=== PATIENT | female | born 1955 | race Caucasian/White ===

== ENCOUNTER 2021-11-25 07:24 | Outpatient (RCR) | payer OTHER, SELFPAY ==
[2021-11-25 07:37] VITALS: BP 150/70; PULSE 70; RESP 16; TEMP 35.8; O2SAT 96
[2021-11-25] MEDS: ACETAMINOPHEN 325 MG TABLET 650 MG PO (07:39)
[2021-11-25] MEDS: diphenhydrAMINE HCl CAP 25 MG CAPSULE PO (07:40)
[2021-11-25] MEDS: FAMOTIDINE 20 MG TABLET PO (07:40)
[2021-11-25 08:59] VITALS: BP 123/42; PULSE 72; O2SAT 98
== END 2021-11-25 17:00 ==
LOC: AMCINF 07:24
PROVIDERS: PCP Nurse Practitioner Family; Visit Provider Internal Medicine Hematology & Oncology
DX: U07.1 COVID-19 (principal); I10 Essential (primary) hypertension; I25.10 Atherosclerotic heart disease of native coronary artery without angina pectoris; J44.9 Chronic obstructive pulmonary disease, unspecified; E11.9 Type 2 diabetes mellitus without complications
CPT/HCPCS: A9270; M0247; Q0247

== ENCOUNTER 2022-02-25 12:54 | Outpatient (CLI) | payer OTHER, SELFPAY ==
--- NOTE | 2022-02-25 14:45 | WPDPFTINT ---
PFT Procedure Performed PFT Procedure Performed Spirometry with Pre/Post Bronchodilator Plethysmography (Lung Vol) Diffusing Cap (DLCO) Flow Vol Loop PFT Interpretation This is a pulmonary function test with pre and post-bronchodilator spirometry, plethysmography and diffusing capacity. The test was performed and results interpreted in accordance with the 2019 and 2005 ATS/ERS Task Force guidelines respectively using the Global Lung Function Initiative-2012 reference equations. Patient demonstrated good effort and cooperation. Reproducibility criteria were met. The quality of the pre bronchodilator spirometry maneuver was Grade A and post bronchodilator spirometry maneuver was Grade A. Findings: Spirometry: The contour the inspiratory and expiratory flow tracing are normal. The pre bronchodilator FVC is 2.46 L, 88% predicted. The pre bronchodilator FEV1 is 1.96 L, 90% predicted. The pre bronchodilator FEV1: FVC ratio is 80%. The post bronchodilator FVC is 2.43 L, representing 1% decrease. The post bronchodilator FEV1 is 2.05 L, representing a 5% increase. The post bronchodilator FEV1: FVC ratio was 84%. Plethysmography: The total lung capacity is 4.23 L, 90% predicted. Functional residual capacity is 1.73 L, 65% predicted. The 5 residual volume is 1.59 L, 80% predicted. Diffusing capacity: The diffusing capacity unadjusted for hemoglobin and carboxyhemoglobin is 19.6, 97% predicted. The diffusing capacity corrected for alveolar volume is 5.10, 114% predicted. Impression: The spirometry is normal without evidence of an obstructive abnormality. There is no significant improvement after inhaling a single dose of albuterol. The lung volumes are normal. The diffusing capacity is normal. There are no prior studies for comparison
== END 2022-02-25 12:55 | disposition home or self-care (01) ==
LOC: ANHPFT 12:55
PROVIDERS: PCP Internal Medicine; Visit Provider Internal Medicine Pulmonary Disease
DX: R06.00 Dyspnea, unspecified (principal)
CPT/HCPCS: 94060; 94726; 94729

== ENCOUNTER 2022-02-28 09:38 | Outpatient (CLI) | payer OTHER, SELFPAY ==
--- NOTE | ~2022-02-28 | XR_ITS ---
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 TECHNIQUE: Modified barium esophagram was performed by speech pathologist with radiologist Dr. Scott Chun present to administered fluoroscopy. Speech pathologist administered barium in varying consis tencies as per speech pathologist documentation. This was recorded on tape. There was total fluorosc opic time of 1.1 minutes. The DAP for this procedure was 2.1 Gycm2. A total of 3 images sent to PAC S from the exam. FINDINGS: Oral stage: Adequate function. Pharyngeal phase: Adequate function. Laryngeal penetration: None. Aspiration: None. Laryngeal sensitivity: Present. Patient was also given a barium tablet to swallow, there was some delay in transit out of the mouth a nd was briefly delayed at the gastroesophageal junction but then passed with additional liquid ingest ion. IMPRESSION: Patient tolerated oral feedings in the upright position. Please refer to speech patholo gist findings and specific feeding recommendations. Reviewed, dictated and finalized at location A. IMPRESSION: Patient tolerated oral feedings in the upright position. Please r efer to speech pathologist findings and specific feeding recommendations.
--- NOTE | 2022-03-01 11:17 | STOPEVAL ---
Thank you for referring Ifrah Akbar to [facility].? Attending Provider: Robi Watkins MD FAX: [phone] Modified Barium Swallow Evaluation Recent Swallowing History Reports Dysphagia Yes: not all the time-comes & goes where is goes down the wrong way Onset of Dysphagia 2019 Duration of Dysphagia since beginning of 2019 after spinal surgery which was @ the end of 2018 Other Factors Impacting Dysphagia Head/Neck Surgery History of Pneumonia No Reported Difficult Consistencies Thin Liquids,Solids Intake Method Prior to Swallow Oral Evaluation Diet Prior to Swallow Evaluation Regular, Level 7 Liquid Consistency Prior to Swallow Thin (0) Evaluation Consistency Barium Pill Other Amount with water Oral Preparatory Symptoms None Oral Phase Symptoms None Pharyngeal Phase Symptoms None Severity of Vallecular Residue None - 0% No Residue Severity of Pyriform Sinus Residue None - 0% No Residue 8 Point Laryngeal Penetration-Aspiration Material Does Not Enter Airway Scale Cervical/Esophageal Symptoms None Solid Consistency Method of Presentation Spoon Oral Preparatory Symptoms None Oral Phase Symptoms None Pharyngeal Phase Symptoms None Severity of Vallecular Residue None - 0% No Residue Severity of Pyriform Sinus Residue None - 0% No Residue 8 Point Laryngeal Penetration-Aspiration Material Does Not Enter Airway Scale Cervical/Esophageal Symptoms None Mixed Consistency Method of Presentation Spoon Oral Preparatory Symptoms None Oral Phase Symptoms None Pharyngeal Phase Symptoms None Severity of Vallecular Residue None - 0% No Residue Severity of Pyriform Sinus Residue None - 0% No Residue 8 Point Laryngeal Penetration-Aspiration Material Does Not Enter Airway Scale Cervical/Esophageal Symptoms None Pureed Consistency Method of Presentation Spoon Oral Preparatory Symptoms None Oral Phase Symptoms None Pharyngeal Phase Symptoms None Severity of Vallecular Residue None - 0% No Residue Severity of Pyriform Sinus Residue None - 0% No Residue 8 Point Laryngeal Penetration-Aspiration Material Does Not Enter Airway Scale Cervical/Esophageal Symptoms None Thin Uncontrolled 2 Method of Presentation Straw Oral Preparatory Symptoms None Oral Phase Symptoms None Pharyngeal Phase Symptoms None Severity of Vallecular Residue None - 0% No Residue Severity of Pyriform Sinus Residue None - 0% No Residue 8 Point Laryngeal Penetration-Aspiration Material Does Not Enter Airway Scale
== END 2022-02-28 09:39 | disposition home or self-care (01) ==
PROVIDERS: PCP Internal Medicine; Visit Provider Internal Medicine Pulmonary Disease
DX: M48.062 Spinal stenosis, lumbar region with neurogenic claudication (principal); R05.9 Cough, unspecified
CPT/HCPCS: 92611

== ENCOUNTER 2022-08-17 10:10 | Outpatient (CLI) | payer OTHER, SELFPAY ==
--- NOTE | ~2022-08-17 | CT_ITS ---
EXAMINATION:CT diagnostic chest wo con DATE: 08/17/2022 10:48 INDICATION: Lung nodules. Other nonspecific abnormal finding in lung field. TECHNIQUE: Computed tomography (CT) of the chest was performed without intravenous contrast. Automate d exposure control and iterative reconstruction technique were employed. The dose-length product (DLP ) was 356.53 mGy-cm. COMPARISON: Chest CT 01/31/2022 FINDINGS: There is mild atelectasis in the inferior lungs. There is a 5 mm nodule at right major fiss ure. There is a 7 mm nodule at minor fissure. There is a 3 mm nodule in lingula. There is a 4 mm nodu le in left lower lobe. There is a 3 mm nodule left lower lobe. No pleural effusion. The heart size is normal. There are coronary artery calcifications. No pericardial effusion. There is diffuse hepatic steatosis. There are changes of anterior fusion procedure in cervical spine. There are bridging endpl ate osteophytes at multiple levels in the spine, consistent with diffuse idiopathic skeletal hyperost osis (DISH). There is mild thoracic spondylosis. IMPRESSION: 1. Pulmonary nodules, stable from 01/31/2022, likely benign. Reviewed, dictated and finalized at location A.
== END 2022-08-17 10:11 | disposition home or self-care (01) ==
PROVIDERS: PCP Internal Medicine; Visit Provider Internal Medicine Pulmonary Disease
DX: R91.8 Other nonspecific abnormal finding of lung field (principal)
CPT/HCPCS: 71250

== ENCOUNTER 2022-10-18 12:35 | Outpatient (CLI) | payer OTHER, SELFPAY ==
[2022-10-18] MEDS: METHACHOLINE CHLORIDE 18 ML VIAL.NEB INHALATION (13:10)
--- NOTE | 2022-10-19 09:48 | WPDMETH ---
Methacholine Procedure Perform Procedure Performed Methacholine Challenge Methacholine Challenge Methacholine Challenge: Methacholine challenge was performed with quadrupling increases of nebulized methacholine according to the 5-step dosimeter protocol recommended by the ATS/ERS 2017 guidelines. Following administration of 464.4 mcg of methacholine at step 5, the measured FEV1 decreased by approximately 23 % from the baseline measurement. Post administration of nebulized short-acting bronchodilator, the FEV1 returned back to near baseline level. Impression: Positive methacholine challenge testing. Normal airway hyperresponsiveness.
== END 2022-10-18 12:36 | disposition home or self-care (01) ==
LOC: ANHPFT 12:38
PROVIDERS: PCP Nurse Practitioner Family; Visit Provider Internal Medicine Pulmonary Disease
DX: R06.02 Shortness of breath (principal)
CPT/HCPCS: 94070; J7674